=== PATIENT | female | born 1980 | race Caucasian/White ===

== ENCOUNTER → 2020-09-27 | Outpatient (CLI) | payer OTHER | LOC: MAMO 13:46 → US 09-28 14:30 | DX: N63.21 Unspecified lump in the left breast, upper outer quadrant (principal) | CPT/HCPCS: 76641-LT; 77065 ==

== ENCOUNTER → 2021-10-07 | Outpatient (CLI) | payer OTHER ==
[~2021-10-07] MED LIST: COLACE 100MG C100 MG PO; LEXAPRO10 MG PO; NAPROXEN250 MG PO; ROXICODONE TAB 55 MG PO; TAMOXIFEN CITRA20 MG PO; XARELTO20 MG PO
[2021-10-07 14:22] LABS: HEMOGLOBIN 12.1 gm/dl (12.3-15.3); RED BLOOD COUNT 4.03 M/UL (4.00-5.10); WHITE BLOOD COUNT 4.9 K/UL (4.5-11.0)
[2021-10-07 15:01] LABS: BUN/CREATININE RATIO 16 (0-10)
== END ==
LOC: OPSV2 10-04 09:00
PROVIDERS: Anesthesiology; Obstetrics & Gynecology
DX: Z01.812 Encounter for preprocedural laboratory examination (principal); R10.2 Pelvic and perineal pain; Z85.3 Personal history of malignant neoplasm of breast; Z92.21 Personal history of antineoplastic chemotherapy; Z92.3 Personal history of irradiation
CPT/HCPCS: 80048; 81001; 85025

== ENCOUNTER 2021-10-08 18:53 | Emergency (ER) | payer OTHER | END 2021-10-08 21:00 | disposition home or self-care (01) | LOC: ER1 18:53 | DX: T81.9XXA Unspecified complication of procedure, initial encounter (principal); Z85.3 Personal history of malignant neoplasm of breast; Z85.41 Personal history of malignant neoplasm of cervix uteri | CPT/HCPCS: 99283 ==

== ENCOUNTER → 2021-10-08 | Day surgery (SDC) | payer OTHER | END | disposition home or self-care (01) | LOC: OR 05:25 | DX: N72 Inflammatory disease of cervix uteri (principal); N83.8 Other noninflammatory disorders of ovary, fallopian tube and broad ligament; Z85.3 Personal history of malignant neoplasm of breast; Z98.51 Tubal ligation status; Z92.21 Personal history of antineoplastic chemotherapy; Z92.3 Personal history of irradiation; Z90.13 Acquired absence of bilateral breasts and nipples | CPT/HCPCS: 93005; J0690; J1100; J1170; J1885; J2001; J2250; J2370; J2405; J2704; J2795; J3010 ==